=== PATIENT | male | born 1945 | race Caucasian/White ===

== ENCOUNTER 2017-09-24 12:09 | Emergency (ER) | payer MEDICARE ==
[~2017-09-24] VITALS: Ht 177.8 cm; Wt 87.0 kg
[~2017-09-24 12:09] MED LIST: ESCI10TA PO
[2017-09-24] MEDS ORDERED: SODIUM CHLORIDE 0.9% 1,000 ML IV ONE (12:34)
[2017-09-24 12:50] LABS: MEAN CORPUSCULAR HGB CONC 32.5 g/dL (33.2-36.2); MEAN CORPUSCULAR VOLUME 92.2 fL (81-97); MEAN PLATELET VOLUME 9.4 fL (7.4-10.4); PLATELET COUNT 363 x10^3/uL (130-400); RED BLOOD COUNT 5.72 x10^6/uL (4.38-5.82); RED CELL DISTRIBUTION WIDTH 14.2 % (9.4-14.8)
[2017-09-24 13:00] LABS: ALANINE AMINOTRANSFERASE 183 U/L (12-78); ALBUMIN 3.1 g/dL (3.4-5.0); ANION GAP 8 mmol/L (5-15); CALCIUM 9.1 mg/dL (8.5-10.1); CHLORIDE 119 mmol/L (98-107); CREATININE 1.49 mg/dL (0.7-1.3)
[2017-09-24] MEDS ORDERED: SODIUM CHLORIDE FLUSH 10ML SYR IVF ONE (13:00)
[2017-09-24 13:02] LABS: ALKALINE PHOSPHATASE 87 U/L (45-117); TOTAL PROTEIN 8.5 g/dL (6.4-8.2)
[2017-09-24 13:51] LABS: BASOPHILS # (AUTO) 0.09 x10^3/uL (0-0.1); BASOPHILS % (AUTO) 0 % (0-1); EOSINOPHILS # (AUTO) 0.01 x10^3/uL (0-0.4); EOSINOPHILS % (AUTO) 0 % (1-7); LYMPHOCYTES # (AUTO) 1.27 x10^3/uL (1-3.4); LYMPHOCYTES % (AUTO) 5 % (22-44); MD SCAN; MONOCYTES # (AUTO) 0.65 x10^3/uL (0.2-0.8); MONOCYTES % (AUTO) 3 % (2-9); NEUTROPHILS # (AUTO) 22.96 x10^3/uL (1.8-6.8); NEUTROPHILS % (AUTO) 92 % (42-75)
[2017-09-24] MEDS ORDERED: MORPHINE SULFATE 4 MG/ML, 1ML IV PRN (15:00)
[2017-09-24] MEDS ORDERED: LORazepam 2 MG/ML, 1ML IVPush ONE (15:00)
[2017-09-24] MEDS ORDERED: LORazepam 2 MG/ML, 1ML ONE (15:03)
[2017-09-24] MEDS ORDERED: MORPHINE SULFATE 4 MG/ML, 1ML ONE (15:03)
[2017-09-24] MEDS ORDERED: ONDANSETRON 2MG/ML, 2ML ONE (15:04)
[2017-09-24 17:18] VITALS: BP 120/88
== END 2017-09-24 15:20 | disposition home or self-care (01) ==
LOC: ED 13:03
DX: N28.9 Disorder of kidney and ureter, unspecified (principal); D72.829 Elevated white blood cell count, unspecified; R09.02 Hypoxemia; E87.0 Hyperosmolality and hypernatremia; R22.1 Localized swelling, mass and lump, neck; R00.0 Tachycardia, unspecified
CPT/HCPCS: 36415; 80053; 85025; 96374